=== PATIENT | male | born 1960 | race Caucasian/White ===

== ENCOUNTER 2018-09-13 13:19 | Emergency (ER) | payer OTHER, BC ==
[2018-09-13 13:34] LABS: Glucose,Whole Blood 563 mg/dL (75-99)
[2018-09-13 13:34] LABS: Glucose,Whole Blood 563 mg/dL (75-99)
[2018-09-13 13:51] LABS: ALT 30 U/L (21-72); AST 36 U/L (17-59); African American GFR (CKD) >90 (>60 ml/min/1.73 sqM); Albumin 3.8 g/dL (3.5-5.0); Alcohol <10 mg/dL; Alkaline Phosphatase 99 U/L (38-126); Amylase 49 U/L (30-110); Anion Gap 13 mmol/L; Blood Urea Nitrogen 15 mg/dL (9-20); Calcium 8.8 mg/dL (8.4-10.2); Carbon Dioxide 23 mmol/L (22-30); Chloride 97 mmol/L (98-107); Magnesium 1.8 mg/dL (1.6-2.3); Potassium 4.3 mmol/L (3.5-5.1); Sodium 133 mmol/L (137-145); Total Bilirubin 0.9 mg/dL (0.2-1.3); Total Protein 6.2 g/dL (6.3-8.2)
--- NOTE | 2018-09-13 13:51 | XR ---
EXAMINATION TYPE: XR chest 1V portable DATE OF EXAM: 09/13/2018 HISTORY: Shortness of breath. COMPARISON: None. TECHNIQUE: Single view of the chest is submitted. FINDINGS: Demonstrated are scattered senescent parenchymal change. There is no evidence for focal infiltrate. The heart is stable. Hilar and mediastinal structures are within normal limits. Degenerative changes are seen of the dorsal spine. IMPRESSION: 1. Chronic changes without evidence for acute pulmonary disease.
--- NOTE | 2018-09-13 13:52 | XR ---
EXAMINATION TYPE: XR pelvis AP view DATE OF EXAM: 09/13/2018 CLINICAL HISTORY: pain TECHNIQUE: Single view the pelvis is submitted. FINDINGS: No evidence for fracture, dislocation or bony lesion. Joint spaces are well-preserved. S I joints appear symmetric. IMPRESSION: 1. No acute fracture or dislocation seen. ICD 10 NO FRACTURE, INITIAL EVALUATION
[2018-09-13 13:53] LABS: Partial Thromboplastin Time 23.6 sec (22.0-30.0); Prothrombin Time 10.8 sec (9.0-12.0)
[2018-09-13 13:57] LABS: Creatine Kinase 107 U/L (55-170)
[2018-09-13 13:59] LABS: Basophils % (A) 0 %; Eosinophils % (A) 0 %; HCT 37.7 % (39.0-53.0); HGB 12.8 gm/dL (13.0-17.5); Lymphocytes # (A) 0.5 k/uL (1.0-4.8); Lymphocytes % (A) 11 %; MCHC 33.8 g/dL (31.0-37.0); MCV 91.6 fL (80.0-100.0); Mean Platelet Volume 7.6; Monocytes # (A) 0.2 k/uL (0-1.0); Monocytes % (A) 5 %; Neutrophils # (A) 3.8 k/uL (1.3-7.7); Neutrophils % (A) 81 %; Platelet Count 193 k/uL (150-450); RBC 4.12 m/uL (4.30-5.90); RDW 13.4 % (11.5-15.5); WBC 4.7 k/uL (3.8-10.6)
[2018-09-13 14:00] LABS: Glucose 605 mg/dL (74-99)
[2018-09-13 14:03] VITALS: BP 129/85; PULSE 92; RESP 16; TEMP 99.2
[2018-09-13 14:09] LABS: Appearance,Urine Clear (Clear); Bilirubin,Urine Negative (Negative); Blood,Urine Negative (Negative); Color,Urine Light Yellow; Glucose,Urine (UA) 4+ (Negative); Ketones,Urine 1+ (Negative); Leukocyte Esterase,Urine Negative (Negative); Nitrite,Urine Negative (Negative); PH, Urine 5.5 (5.0-8.0); Protein,Urine Negative (Negative); Specific Gravity,Urine 1.033 (1.001-1.035); Urobilinogen,Urine <2.0 mg/dL (<2.0)
[2018-09-13 14:10] LABS: Creatine Kinase MB 0.7 ng/mL (0.0-2.4); Troponin I <0.012 ng/mL (0.000-0.034)
[2018-09-13] MEDS ORDERED: DIPH,PERTUS(ACELL)TETVAC-LF 0.5 ML VIAL IM ONE (14:14)
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
[2018-09-13] MEDS ORDERED: INSULIN REGULAR 100 UNIT/ML VIAL IV ONE ×2 (14:26→15:35)
[2018-09-13 14:27] LABS: Amphetamine Screen,Urine Not Detected (NotDetected); Benzodiazepines Screen,Urine Not Detected (NotDetected); Cocaine Screen,Urine Not Detected (NotDetected); Opiate Screen,Urine Not Detected (NotDetected); Phencyclidine Screen,Urine Not Detected (NotDetected); Tricyclic Antidepressant,Urine Not Detected (NotDetected); Urn Cannabinoid Scrn Not Detected (NotDetected)
[2018-09-13 14:28] LABS: Barbiturate Screen,Urine Not Detected (NotDetected); Methadone Screen, Urine Not Detected (NotDetected); Oxycodone Screen, Urine Not Detected (NotDetected)
[2018-09-13] MEDS ORDERED: LIDOCAINE 1% INJ 10MG/ML (20 ML MDV) SQ ONE (14:42)
[2018-09-13] MEDS ORDERED: SODIUM CHLORIDE 0.9% 1,000 ML IV STA (15:17)
[2018-09-13 15:25] LABS: Glucose,Whole Blood 522 mg/dL (75-99)
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
[2018-09-13 16:27] LABS: Glucose,Whole Blood 422 mg/dL (75-99)
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
== END 2018-09-13 16:52 | disposition other institution (70) ==
LOC: EC 13:19
DX: S01.312A Laceration without foreign body of left ear, initial encounter (principal); S01.02XA Laceration with foreign body of scalp, initial encounter; R73.9 Hyperglycemia, unspecified; R44.1 Visual hallucinations; R46.89 Other symptoms and signs involving appearance and behavior; Z88.0 Allergy status to penicillin; Z87.891 Personal history of nicotine dependence; Z23 Encounter for immunization; V89.2XXA Person injured in unspecified motor-vehicle accident, traffic, initial encounter; Y92.89 Other specified places as the place of occurrence of the external cause
CPT/HCPCS: 36415; 93005; 86900; 86901; 80053; 82150; 82550; 82553; 83605; 83690; 83735; 84484; 85025; 85610; 85730; 86850; 81003; 80306; 80320; 72170; 71045; 72125; 70450; 90715; 99285; 12001; 12011; 96360; 90471; J2001; 86580

== ENCOUNTER → 2018-12-09 | Outpatient (CLI) | payer BC, OTHER ==
--- NOTE | 2018-12-09 14:39 | CT ---
EXAMINATION TYPE: CT brain wo con DATE OF EXAM: 12/09/2018 COMPARISON: 09/13/2018 INDICATION: G 40.909 DLP: 1067 mGycm, Automated exposure control for dose reduction was used. CONTRAST: None CT of the brain is performed utilizing 3 mm thick sections through the posterior fossa and 3 mm thick sections through the remaining calvarium. Study is performed within 24 hours of arrival to the hosp ital. No abnormal hyperdensity is present to suggest an acute intracranial hemorrhage. No mass lesion is evident. No acute infarcts are evident. Ventricles and sulci are appropriate for the patient age. Paranasal sinuses and mastoid air cells within the [id number] are clear. IMPRESSIONS: 1. No acute intracranial process.
== END | disposition home or self-care (01) ==
LOC: RADCTMAIN 13:51
PROVIDERS: ATTEND Psychiatry & Neurology Neurology
DX: G40.909 Epilepsy, unspecified, not intractable, without status epilepticus (principal)
CPT/HCPCS: 70450

== ENCOUNTER 2021-02-26 13:53 | Emergency (ER) | payer OTHER, BC ==
[2021-02-26 14:00] VITALS: TEMP 98.1
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
[2021-02-26 14:45] LABS: ALT 35 U/L (4-49); AST 36 U/L (17-59); African American GFR (CKD) >90 (>60 ml/min/1.73 sqM); Albumin 4.7 g/dL (3.5-5.0); Alkaline Phosphatase 78 U/L (38-126); Anion Gap 20 mmol/L; Blood Urea Nitrogen 11 mg/dL (9-20); Calcium 9.4 mg/dL (8.4-10.2); Carbon Dioxide 19 mmol/L (22-30); Chloride 98 mmol/L (98-107); Glucose 166 mg/dL (74-99); Magnesium 1.8 mg/dL (1.6-2.3); Non-African American GFR(CKD) >90 (>60 ml/min/1.73 sqM); Potassium 3.8 mmol/L (3.5-5.1); Sodium 137 mmol/L (137-145); Total Bilirubin 0.9 mg/dL (0.2-1.3); Total Protein 7.8 g/dL (6.3-8.2)
[2021-02-26 14:46] LABS: Basophils % (A) 1 %; Eosinophils # (A) 0.3 k/uL (0-0.7); Eosinophils % (A) 6 %; HCT 44.1 % (39.0-53.0); Lymphocytes # (A) 1.1 k/uL (1.0-4.8); Lymphocytes % (A) 18 %; MCH 32.3 pg (25.0-35.0); MCV 95.2 fL (80.0-100.0); Mean Platelet Volume 9.6; Monocytes # (A) 0.3 k/uL (0-1.0); Monocytes % (A) 6 %; Neutrophils # (A) 3.9 k/uL (1.3-7.7); Neutrophils % (A) 66 %; Platelet Count 103 k/uL (150-450); RBC 4.63 m/uL (4.30-5.90); RDW 12.8 % (11.5-15.5); WBC 5.9 k/uL (3.8-10.6)
[2021-02-26 15:41] VITALS: BP 136/84; PULSE 70; RESP 16
== END 2021-02-26 15:40 | disposition home or self-care (01) ==
LOC: EC 13:53
DX: R56.9 Unspecified convulsions (principal); E11.9 Type 2 diabetes mellitus without complications; I10 Essential (primary) hypertension; Z88.0 Allergy status to penicillin; Z87.891 Personal history of nicotine dependence
CPT/HCPCS: 36415; 80053; 83735; 85025; 93005; 99285

== ENCOUNTER 2021-12-28 17:44 | Observation (INO) | payer BC, OTHER ==
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
[2021-12-28] MEDS ORDERED: LORazepam 2 MG/ML INJ IV STA (18:19)
[2021-12-28] MEDS ORDERED: levETIRAcetam IV 1,500 MG in SALINE 1 100ML.BAG IVPB STA (18:24)
--- NOTE | 2021-12-28 18:44 | XR ---
EXAMINATION TYPE: XR chest 2V DATE OF EXAM: 12/28/2021 6:34 PM COMPARISON: Chest x-ray 09/13/2018 TECHNIQUE: XR chest 2V . CLINICAL INDICATION:Male, 61 years old with history of Seizure; FINDINGS: Lungs/Pleura: Low lung volumes. Prominent perihilar interstitial markings which are likely accentuate d from low lung volumes. There is no evidence of pleural effusion, focal consolidation, or pneumothor ax. Bibasilar atelectasis. Pulmonary vascularity: Unremarkable. Heart/mediastinum: Cardiomediastinal silhouette is unremarkable. Musculoskeletal: Multiple level degenerative disc disease changes seen throughout the spine. IMPRESSION: No acute cardiopulmonary disease/process.
--- NOTE | 2021-12-28 18:54 | CT ---
EXAMINATION TYPE: CT brain wo con CT DLP: 1158.4 mGycm, Automated exposure control for dose reduction was used. DATE OF EXAM: 12/28/2021 6:47 PM COMPARISON: CT brain 12/09/2018. CLINICAL INDICATION:Male, 61 years old with history of Altered mental status, seizure, AMS, possible seizure TECHNIQUE: Brain: Axial CT images of the brain were obtained with coronal and sagittal reformats created and rev iewed. Contrast used: None. Oral contrast used: None. FINDINGS: Brain: Extra-axial spaces: No abnormal extra-axial fluid collections. Ventricular system: Within normal limits Cerebral parenchyma: No acute intraparenchymal hemorrhage or mass effect. The mcdaniels-white junction is well differentiated. Cerebellum: Unremarkable. Mass effect: No evidence of midline shift. Intracranial vasculature: Atherosclerotic calcifications of the intracranial vessels. Soft tissues: Superficial metallic densities are seen in the anterior frontal soft tissues. No acute soft tissue abnormalities. Calvarium/osseous structures: No depressed skull fracture. Paranasal sinuses and mastoid air cells: Mild scattered paranasal sinus disease. Visualized orbits: Orbital contents are intact. IMPRESSION: No acute intracranial process.
[2021-12-28 19:05] LABS: Basophils % (A) 0 %; Eosinophils # (A) 0.1 k/uL (0-0.7); Eosinophils % (A) 1 %; HCT 43.6 % (39.0-53.0); HGB 14.6 gm/dL (13.0-17.5); Lymphocytes # (A) 0.8 k/uL (1.0-4.8); Lymphocytes % (A) 11 %; MCH 30.4 pg (25.0-35.0); MCHC 33.5 g/dL (31.0-37.0); MCV 90.7 fL (80.0-100.0); Mean Platelet Volume 9.4; Monocytes # (A) 0.3 k/uL (0-1.0); Monocytes % (A) 4 %; Neutrophils % (A) 81 %; Platelet Count 114 k/uL (150-450); RBC 4.81 m/uL (4.30-5.90); RDW 13.6 % (11.5-15.5); WBC 7.5 k/uL (3.8-10.6)
[2021-12-28 19:14] LABS: ALT 32 U/L (4-49); AST 35 U/L (17-59); African American GFR (CKD) >90 (>60 ml/min/1.73 sqM); Albumin 5.1 g/dL (3.5-5.0); Alcohol <10 mg/dL; Alkaline Phosphatase 91 U/L (38-126); Anion Gap 18 mmol/L; Blood Urea Nitrogen 13 mg/dL (9-20); Calcium 9.1 mg/dL (8.4-10.2); Carbon Dioxide 16 mmol/L (22-30); Chloride 101 mmol/L (98-107); Creatine Kinase 115 U/L (55-170); Glucose 151 mg/dL (74-99); Non-African American GFR(CKD) >90 (>60 ml/min/1.73 sqM); Potassium 4.3 mmol/L (3.5-5.1); Sodium 135 mmol/L (137-145); Total Bilirubin 0.9 mg/dL (0.2-1.3)
[2021-12-28] MEDS ORDERED: SODIUM CHLORIDE 0.9% 1,000 ML IV STA ×2 (20:06)
[2021-12-28] MEDS ORDERED: NALOXONE 0.4 MG/ML 1 ML VIAL IV PRN (20:35)
[2021-12-28] MEDS ORDERED: ACETAMINOPHEN TAB 325 MG TAB PO PRN (20:35)
[2021-12-28] MEDS ORDERED: DEXTROSE 50% SYRINGE 50 ML IVP PRN ×2 (20:39)
[2021-12-28] MEDS ORDERED: NON FORMULARY DRUG (Metformin Hcl [Glucophage] 1,000 MG Tablet) PO SCH (21:00)
[2021-12-28] MEDS ORDERED: metFORMIN 500 MG TAB PO SCH (21:00)
[2021-12-28] MEDS: SODIUM CHLORIDE 0.9% 1,000 ML IV SCH (22:25)
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
[2021-12-28] MEDS: INSULIN DETEMIR (LEVEMIR) 100 UNIT/ML SYR SQ SCH (23:15)
[2021-12-28 23:22] LABS: Glucose,Whole Blood 100 mg/dL (70-110)
[2021-12-29] MEDS: SODIUM CHLORIDE 0.9% 1,000 ML IV SCH ×3 (06:04→20:54)
[2021-12-29 06:20] LABS: Glucose,Whole Blood 54 mg/dL (70-110)
[2021-12-29] MEDS: INSULIN ASPART (NovoLOG) 100 UNIT/ML VIAL SQ SCH ×4 (06:23→20:53)
[2021-12-29 06:30] LABS: Glucose,Whole Blood 95 mg/dL (70-110)
[2021-12-29] MEDS: LOSARTAN 50 MG TAB PO SCH (08:56)
[2021-12-29] MEDS ORDERED: DAPAGLIFLOZIN PROPANEDIOL 10 MG TABLET PO SCH (09:00)
[2021-12-29] MEDS ORDERED: LINAGLIPTIN 5 MG TABLET PO SCH (09:00)
[2021-12-29] MEDS ORDERED: PIOGLITAZONE 45 MG TAB PO SCH (09:00)
[2021-12-29 09:08] LABS: HCT 36.6 % (39.0-53.0); HGB 12.4 gm/dL (13.0-17.5); MCH 31.2 pg (25.0-35.0); MCHC 33.9 g/dL (31.0-37.0); MCV 92.2 fL (80.0-100.0); Mean Platelet Volume 9.2; RBC 3.97 m/uL (4.30-5.90); RDW 13.7 % (11.5-15.5); WBC 7.2 k/uL (3.8-10.6)
[2021-12-29 09:25] LABS: African American GFR (CKD) >90 (>60 ml/min/1.73 sqM); Anion Gap 10 mmol/L; Blood Urea Nitrogen 13 mg/dL (9-20); Calcium 8.1 mg/dL (8.4-10.2); Carbon Dioxide 24 mmol/L (22-30); Chloride 104 mmol/L (98-107); Glucose 105 mg/dL (74-99); Non-African American GFR(CKD) >90 (>60 ml/min/1.73 sqM); Potassium 4.2 mmol/L (3.5-5.1); Sodium 138 mmol/L (137-145)
[2021-12-29 09:42] LABS: Platelet Count 84 k/uL (150-450)
[2021-12-29] MEDS ORDERED: LORazepam 1 MG/0.5 ML VIAL IV PRN (10:34)
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
[2021-12-29 12:09] LABS: Glucose,Whole Blood 135 mg/dL (70-110)
[2021-12-29 16:28] LABS: Glucose,Whole Blood 125 mg/dL (70-110)
[2021-12-29 19:55] LABS: Glucose,Whole Blood 199 mg/dL (70-110)
[2021-12-29] MEDS: INSULIN DETEMIR (LEVEMIR) 100 UNIT/ML SYR SQ SCH (20:53)
[2021-12-30] MEDS: SODIUM CHLORIDE 0.9% 1,000 ML IV SCH ×2 (03:59→14:32)
[2021-12-30 06:17] LABS: Glucose,Whole Blood 63 mg/dL (70-110)
[2021-12-30] MEDS: INSULIN ASPART (NovoLOG) 100 UNIT/ML VIAL SQ SCH ×2 (06:25→14:27)
[2021-12-30 06:58] LABS: Glucose,Whole Blood 108 mg/dL (70-110)
[2021-12-30 09:18] VITALS: RESP 17
[2021-12-30 11:37] LABS: Glucose,Whole Blood 128 mg/dL (70-110)
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
--- NOTE | 2021-12-30 13:02 | P.PN ---
Subjective Progress Note Date: 12/30/21 The patient is seen at bedside and states he is at baseline. Denies any further seizures. Objective - Vital Signs Vital signs: Vital Signs Temp 98.1 F 12/30/21 08:00 Pulse 68 12/30/21 08:00 Resp 17 12/30/21 08:00 BP 94/56 12/30/21 08:00 Pulse Ox 97 12/30/21 08:00 FiO2 Intake & Output 12/29/21 12/30/21 12/30/21 18:59 06:59 18:59 Intake Total 854 358 118 Balance 854 358 118 Intake: Oral 854 358 118 Other: Voiding Method Urinal Urinal # Voids 2 1 - Exam GENERAL: The patient is lying in bed and is not in acute distress. NEUROLOGICAL: Higher mental function: The patient is awake, alert, oriented to self, place and time. Patient is following commands. No aphasia and no neglect. Cranial nerves: The pupils are round, equal and reactive to light and accommodation. Visual lazo are full to confrontation throughout. Extraocular movement is intact no nystagmus is noted. Facial sensation is normal to touch throughout. The facial strength is normal throughout. Hearing is normal bilaterally to hand rub. Tongue is midline and moved [id number] without any difficulty. Has tongue bite over the lateral left anterior two third of tongue. No dysarthria is noted. Shoulder shrug is normal bilaterally. Motor: The strength is 5 over 5 throughout. Normal tone and bulk. Cerebellum: Normal finger to nose bilaterally. Sensation: Sensation is normal to touch throughout. Reflexes (right/left): 2+ throughout. Plantars are downgoing bilaterally. Some of the workup during this hospital visit consisted of: Initial plasma lactic acid venous 6.2 and a repeat is 1.5. Initial serum glucose is 151, calcium is 9.1, magnesium is 2.0, AST and ALT is within normal limits. CK is 115. TSH is 2.320. Serum alcohol was less than 10. Has episode of hypoglycemia of 63. Given the head is reported as no acute intracranial process. I personally could not review the CT of the head images. - Labs CBC & Chem 7: 12/29/21 08:11 12/29/21 08:11 Labs: Abnormal Lab Results - Last 24 Hours (Table) 12/29/21 12/29/21 12/30/21 Range/Units 16:27 19:54 06:16 POC Glucose (mg/dL) 125 H 199 H 63 L (70-110) mg/dL 12/30/21 Range/Units 11:35 POC Glucose (mg/dL) 128 H (70-110) mg/dL Assessment and Plan Assessment: Break-through seizure since not on antiepileptic drug (had at least GTC seizures witnessed with left tongue bite with post-ictal state) Elevated venous lactic acidosis which is reactive due to seizures which resolved History of epilepsy since 2019 Thrombocytopenia Type 2 diabetes mellitus Hypertension Plan: Continue Keppra 750 mg every 12 hours and that is to be resumed for his recurrent seizure (started during this admission). I notified the patient of the side effects of the Keppra Ordered Ativan 1mg every 4hr PRN for seizures. Continue seizure precaution and pads. Pending routine EEG Recommend MRI of the brain with within without seizure protocol as an outpatient. Patient was notified that according to the [place] DMV because of the seizures, to avoid driving for 6 month until no further seizures, to avoid heights, avoids swimming unassisted and avoid any heavy machinery. He is to follow up with a neurologist as an outpatient within 1-2 weeks. We'll defer the rest of the medical management to the primary team. After EEG if negative for active seizure, patient is clear for discharge from neurological perspective. Time with Patient: Less than 30
[2021-12-30 14:30] VITALS: BMI 25.0
[2021-12-30 14:35] VITALS: BP 112/65; PULSE 69; TEMP 98.4
[2021-12-30] MEDS: LOSARTAN 50 MG TAB PO SCH (14:35)
--- NOTE | 2021-12-31 03:38 | EEG ---
ELECTROENCEPHALOGRAM REPORT CLINICAL HISTORY: This is a 61-year-old gentleman, who had a seizure-like activity. The video EEG is obtained to evaluate for seizure epileptiform activity. RELEVANT MEDICATION: Keppra. EEG TYPE: A routine 21-channel EEG is performed with video using the 10/20 electrode placement system. DESCRIPTION: Wakefulness is only obtained. During awake state, the posterior-dominant rhythm consists of [id number] voltage of 8.5 to 9 hertz activity that is well modulated, well sustained. There is no physiological stage 2 sleep architecture. There is no focal slowing. INTERICTAL AND ICTAL: None. ACTIVATION PROCEDURE: Photic stimulation did not evoke a posterior driving response. There is no abnormality during the photic stimulation. Hyperventilation is not performed. CLINICAL INTERPRETATION: This is a normal routine EEG. There is no focal slowing, epileptiform discharge, or seizure on the EEG. A normal routine EEG does not rule out epilepsy. Clinical correlation is recommended. MMCONCHA / DANGELO: [id number] /
== END 2021-12-30 15:53 | disposition home or self-care (01) ==
LOC: EC 17:44 → INTOOBSV 20:37 → 3SCARD 20:37
PROVIDERS: ADMIT Internal Medicine; ATTEND Internal Medicine
DX: G40.419 Other generalized epilepsy and epileptic syndromes, intractable, without status epilepticus (principal); E87.20 Acidosis, unspecified; I10 Essential (primary) hypertension; E11.9 Type 2 diabetes mellitus without complications; D69.6 Thrombocytopenia, unspecified; Z87.891 Personal history of nicotine dependence; Z79.84 Long term (current) use of oral hypoglycemic drugs; Z79.4 Long term (current) use of insulin; Z79.899 Other long term (current) drug therapy; Z88.0 Allergy status to penicillin; Z82.49 Family history of ischemic heart disease and other diseases of the circulatory system
CPT/HCPCS: 96361 ×2; 96372 ×2; 96365; 96375; 99285; 36415; 95816; 93005; 85379; 80053; 80048; 84443; 82550; 83605; 83735; 84484; 85025; 85027; 80320; 83036; 71046; 70450; G0378 ×4; J2060; J1953